=== PATIENT | female | born 1990 | race Caucasian/White ===

== ENCOUNTER 2024-11-25 03:17 | Inpatient (IN) ==
[2024-11-25] MEDS ORDERED: OXYTOCIN 30 UNITS/NSS 30 UNITS/500 ML BAG IV PRN ×2 (04:04→07:33)
[2024-11-25] MEDS ORDERED: ACETAMINOPHEN 500 MG TAB PO PRN (04:04)
[2024-11-25] MEDS ORDERED: LIDOCAINE 1% LOCAL 20 ML VIAL INFIL PRN (04:04)
[2024-11-25] MEDS ORDERED: CALCIUM CARBONATE 500 MG CHEWABLE TAB PO PRN (04:04)
[2024-11-25] MEDS ORDERED: AZITHROMYCIN 500 MG VIAL IV ONE (04:07)
--- NOTE | 2024-11-25 04:14 | History & Physical Report ---
Date of Service November 25, 2024 Assessment & Plan (1) premature rupture of membranes: Plan: Patient is a 33-year-old G1, P0 at 31 weeks and 4 days of gestation who presented to labor and delivery with premature rupture of membranes, regular contractions, and active labor, OB care was given by the fire hazard inspector, has not been an OB office, was planning to have initial home , Cervix is dilated at 7 cm and presenting part, head, is low in the pelvis, unable to transfer to a tertiary care center with NICU due to imminent delivery, and risk of delivery of premature infant on the way, Patient understands all and agrees to stay here and she understands baby most likely will be transferred to [facility] where NICU is available, Recommended IV antibiotics for unknown GBS and rupture of membranes, patient declined initially and then she discussed with her fire hazard inspector and decided to get antibiotics, she does not want anything for pain, Discussed with resolution manager on-call Dr. Benson who also recommended to give a dose of Celestone, Will obtain labs, start IV antibiotics and IM Celestone and wait for delivery with resolution manager in-house, All questions were answered. (2) labor in third trimester: History of Present Illness Chief Complaint: Patient fluids and contractions Primary Care Provider: NO PCP patient is a 33-year-old G1, P0 at 31 weeks and 4 days of gestation who started having gush of fluid leakage at 02:15 AM this morning, contractions started soon after. She presented to labor and delivery with regular contractions and in active labor. She was seeing a fire hazard inspector and planing to have home with no intervention. She did not want to have epidural, no IVs, no interventions, and hoping that she will labor in bathtub and deliver at home. When she had the symptoms able she decided to come to the hospital for evaluation. She has been feeling contractions every 2 to 3 minutes and they are painful and she has been leaking lots of clear fluids. Her has been uncomplicated, she had normal anatomy scan, normal labs. She denies any medical problems, surgeries, medications. She denies any history of STDs including chlamydia gonorrhea herpes. She is allergic to PCN and Cephalosporins, diffuse rash and SOB, she has taken some other AB's in the past, not sure about the names. Allergies Allergy/AdvReac Type Severity Reaction Status Date / Time cephalexin [From Keflex] Allergy Severe Anaphylaxis Verified 11/25/24 03:34 Penicillins Allergy Severe Anaphylaxis Verified 11/25/24 03:34 Home Medications Medication Instructions Recorded Confirmed Type PNV no.[id number] PO 06/23/24 06/23/24 History [ Gummies] Patient History Medical History History of chicken pox Surgical History Status post surgery L arm fracture Family History Aunt Fragile X syndrome Denies family history of Ovarian cancer Breast cancer Colorectal cancer Social History Smoking Status: Never smoker Do You Dip or Chew Tobacco: No; marital status: marital status details: Nicholas Butler (37) [phone] Current Living Situation: Spouse Current Living Situation Comment: lives with spouse, chickens, cat-pt to wear gloves/mask current occupational status: employed current occupation: [employer] Feels Safe at Home: Yes [employer] History No history of STDs, no history of chlamydia, gonorrhea, herpes Review of Systems as per Subjective / HPI Physical Exam Constitutional: WD/WN, vitals as above well developed, well nourished, + acute distress (with contractions) and + well hydrated Gastrointestinal (Abdomen): normal bowel sounds, soft, nontender, no hepatosplenomegaly Genitourinary: normal external appearance (grossly ruptured ) OB Exam Abdomen: + vertex (confirmed with US) Manual OB Exam: + cervical dilation 7 cm, + cervical effacement 90% and + station -1 OB Exam Monitor Tracing: + external uterine monitor used and + category I Results & Data Vital Signs (Past 12 Hours) Vital Signs Temp Pulse Resp BP 11/25/24 03:52 90 161/86 H 11/25/24 03:42 95 H 157/87 H 11/25/24 03:31 97 H 148/86 H 11/25/24 03:30 20 11/25/24 03:30 36.7 C 20 (1) premature rupture of membranes PROM onset of labor timing: onset of labor within 24 hours of rupture Qualified Code(s): O42.019 - premature rupture of membranes, onset of labor within 24 hours of rupture, unspecified trimester (2) labor in third trimester labor delivery status: with delivery in third trimester Fetus number: single or unspecified fetus Qualified Code(s): O60.14X0 - labor third trimester with delivery third trimester, not applicable or unspecified
[2024-11-25] MEDS: CLINDAMYCIN/D5W 900 MG/50 ML BAG IV SCH (04:35)
[2024-11-25 04:36] LABS: Hematocrit (blood only) 46.6 % (37.0-47.0); Hemoglobin 15.3 g/dl (12.0-16.0); Mean Corpuscular Hemoglobin 24.6 pg (25.0-34.0); Mean Corpuscular Hgb Conc 32.8 g/dL (32.0-36.0); Mean Corpuscular Volume 74.9 fL (80.0-100.0); Platelet Count 128 K/uL (130-400); RDW Coefficient of Variation 15.6 % (11.5-14.5); RDW Standard Deviation 38.6 fL (36.4-46.3); Red Blood Count 6.22 M/uL (4.20-5.40)
[2024-11-25] MEDS: AZITHROMYCIN 250 MG TAB PO SCH (04:36)
[2024-11-25 04:49] LABS: Albumin Globulin Ratio 1.1 (0.9-2); Albumin Level 3.6 gm/dl (3.4-5.0); BUN Creatinine Ratio 21.2 (10-20); Bilirubin,Total 0.5 mg/dl (0.2-1.0); Calcium 9.3 mg/dl (8.6-10.3); Creatinine Clr Calc Pharmacy 157.8 ml/min; Globulin 3.2 gm/dl (2.5-4.0); Potassium 3.9 mmol/L (3.5-5.1); Total Protein 6.8 gm/dl (6.0-8.3)
[2024-11-25] MEDS: BETAMETH SOD PHOS/ACETATE IA 6 MG/ML IM STA (04:51)
--- NOTE | 2024-11-25 05:39 | Obstetrical Progress Note ---
Date of Service November 25, 2024 Subjective [place] [facility] [place] ask for possible transfer, they recommended have her deliver here and then they will send NICU team for care of infant. That would be the safest for her and her baby. Patient is aware. Results & Data Vital Signs (Past 12 Hours) Vital Signs Temp Pulse Resp BP 11/25/24 05:24 18 11/25/24 05:24 36.7 C 18 11/25/24 05:14 81 138/75 11/25/24 03:52 90 161/86 H 11/25/24 03:42 95 H 157/87 H 11/25/24 03:31 97 H 148/86 H 11/25/24 03:30 20 11/25/24 03:30 36.7 C 20
[2024-11-25] MEDS ORDERED: IBUPROFEN 600 MG TAB PO PRN (07:33)
[2024-11-25] MEDS ORDERED: bisacodyL 10 MG SUPP PR PRN (07:33)
[2024-11-25] MEDS ORDERED: HYDROCORTISONE ACETATE 25 MG SUPP PR PRN (07:33)
[2024-11-25] MEDS ORDERED: ACETAMINOPHEN 325 MG TAB PO PRN (07:33)
--- NOTE | 2024-11-25 07:37 | Delivery Summary ---
Vaginal Delivery Summary Date of Service November 25, 2024 Vaginal Delivery Summary Patient was found to be fully dilated and desired to push. She pushed for about 30 min and delivered the head and then shoulders spontaneously with no traction. The baby was handed off to the mother. The cord was clampedx2 and cut. Baby was taken by pediatric team. The vagina and perineum were checked and found to have small 1st degree left labial laceration. Patient has not had epidural and was very uncomfortable. It was hemostatic. The placenta was delivered spontaneously as intact and complete . QBL was 400 ml. The fundus was firm The baby was a viable female , Apgars 8/8, the weight is pending The mother and the baby tolerated the procedure well. No complications happened and I was present during whole procedure.
[2024-11-25] MEDS: BENZOCAINE 20% SPRY 85 APPLN/85 GM CAN EXT PRN (08:02)
[2024-11-25] MEDS: DOCUSATE SODIUM 100 MG CAP PO SCH (15:23)
[2024-11-25] MEDS: PRENATAL VITAMIN 1 TAB PO SCH (15:23)
[2024-11-26] MEDS: DIPHTHER/TETAN/PERTUS Vaccine (Tdap, Adol/Adult) 0.5mL IM ONE (04:06)
[2024-11-26] MEDS: MINERAL OIL 30 ML UDC ONE (04:06)
[2024-11-26] MEDS: MEASLES, MUMPS & RUBELLA VIRUS VACCINE (MMR) 0.5ML VIAL SQ ONE (04:07)
[2024-11-26 04:10] VITALS: TEMP 98.1; O2SAT 96
[2024-11-26 08:18] VITALS: BP 120/74; PULSE 86; RESP 16
--- NOTE | 2024-11-26 08:49 | Obstetrical Progress Note ---
Date of Service November 26, 2024 Subjective Ambulation: ambulating normally Voiding: no voiding problems Passing Gas:: Yes Diet Tolerance:: regular diet Lochia:: Small Feeding Type:: breast feeding Review of Systems All systems reviewed & are unremarkable except as noted in HPI & below Physical Exam Constitutional WD/WN, vitals as above well developed and well nourished Eyes PERRL, conjunctivae normal, anicteric sclerae Neck trachea midline, no thyromegaly Respiratory normal respiratory effort, lungs clear to auscultation Auscultation: no crackles, no rales and no wheezes Cardiovascular RRR, no murmur, no edema Gastrointestinal (Abdomen) normal bowel sounds, soft, nontender, no hepatosplenomegaly Uterus is below umbilicus Musculoskeletal no cyanosis or clubbing, extremities motor strength 5/5 Skin no rashes, warm and dry Neurologic patellar DTR's 2+ bilat, sensation intact Psychiatric A+Ox3, euthymic affect Genitourinary normal external appearance Results & Data Vital Signs (Past 12 Hours) Vital Signs Temp Pulse Resp BP Pulse Ox O2 Del Method 11/26/24 07:25 Room Air 11/26/24 07:25 36.7 C 86 16 120/74 96 Room Air 11/26/24 03:45 36.7 C 78 18 121/74 96 Room Air 11/26/24 01:20 36.6 C 73 18 121/72 97 Room Air
--- NOTE | 2024-11-26 08:50 | Obstetrical Progress Note ---
Date of Service November 26, 2024 Assessment & Plan (1) Normal course: Pt doing well No complaints d/c home with instructions Results & Data Vital Signs (Past 12 Hours) Vital Signs Temp Pulse Resp BP Pulse Ox O2 Del Method 11/26/24 07:25 Room Air 11/26/24 07:25 36.7 C 86 16 120/74 96 Room Air 11/26/24 03:45 36.7 C 78 18 121/74 96 Room Air 11/26/24 01:20 36.6 C 73 18 121/72 97 Room Air
[2024-11-26] MEDS ORDERED: bisacodyL 5 MG TABEC PO SCH (20:00)
== END 2024-11-26 09:40 | disposition home health service (06) | DRG 805 ==
LOC: OPB 03:17 → 4S1 03:19 → 4E2 10:25